=== PATIENT | male | born 1995 | race Caucasian/White ===

== ENCOUNTER 2021-09-14 07:50 | Emergency (ER) | payer BC ==
[~2021-09-14] VITALS: Ht 185.4 cm; Wt 89.0 kg
[2021-09-14] MEDS ORDERED: METHYLPREDNISOLONE SOD SUCC 125 MG/2 ML VIAL IV STA (08:06)
[2021-09-14] MEDS ORDERED: ALBUTEROL (0.083%) 2.5MG/3ML NEB HHN STA (08:06)
[2021-09-14] MEDS ORDERED: SODIUM CHLORIDE 0.9% 1,000 ML IV ONE ×2 (08:15→13:45)
[2021-09-14 08:40] LABS: BASOPHILS % 0.5 % (0.0-2.0); EOSINOPHILS % 10.6 % (0.0-5.0); HEMATOCRIT. 43.5 % (42.0-52.0); HEMOGLOBIN. 14.8 g/dL (14.0-18.0); MEAN CORPUSCULAR HEMOGLOBIN 29.4 pg (28.0-32.0); MEAN CORPUSCULAR VOLUME 86.5 fL (80.0-94.0); MEAN PLATELET VOLUME 8.6 fl (7.4-10.4); MONOCYTES % 8.9 % (2.0-8.0); PLATELET 256 x1000/uL (130-400); RED BLOOD CELL COUNT 5.03 mill/uL (4.7-6.1); RED CELL DISTRIBUTION WIDTH 13.7 % (11.6-14.6)
[2021-09-14 08:50] LABS: CHLORIDE 107 mEq/L (98-107)
[2021-09-14 09:00] LABS: ETHANOL BLOOD < 10 mg/dL
[2021-09-14] MEDS: METHYLPREDNISOLONE SOD SUCC 125 MG/2 ML VIAL IV NR ×2 (09:28→12:07)
[2021-09-14 11:46] LABS: BG CARBOXYHEMOGLOBIN 0.3 % (0.5-1.5); BG HCO3 ACT 24.8 mmol/L (22.0-26.0); BG METHEMOGLOBIN 0.1 % (0.0-1.5); BG OXYHEMOGLOBIN 97.6 % (94.0-97.0); BG PCO2 45.2 mmHg (35.0-45.0); BG PH 7.357 (7.350-7.450); BG PO2 110.9 mmHg (75.0-100.0); BG SAMPLE SITE RIGHT RADIAL; BG TOTAL HEMOGLOBIN 14.9 g/dL (12.0-18.0); BG VENT MODE NASAL CANNULA
[2021-09-14 12:19] LABS: *AMPHETAMINES SCREEN URINE NEGATIVE (NEGATIVE); *BARBITURATES SCREEN URINE NEGATIVE (NEGATIVE); *BENZODIAZEPINES SCREEN URINE NEGATIVE (NEGATIVE); *COCAINE SCREEN URINE NEGATIVE (NEGATIVE); CANNABINOID URINE SCREEN PRESUMTIVE POSITIVE (NEGATIVE); METHADONE URINE SCREEN NEGATIVE (NEGATIVE); OPIATES URINE SCREEN NEGATIVE (NEGATIVE); PHENCYCLIDINE URINE SCREEN PRESUMTIVE POSITIVE (NEGATIVE)
[2021-09-14] MEDS ORDERED: ALBU05 NEB (13:05)
[2021-09-14] MEDS ORDERED: NEBU-281 MC (13:05)
[2021-09-14] MEDS ORDERED: ALBU6.7H9 INH (13:05)
[2021-09-14] MEDS ORDERED: P50 MT (13:05)
[2021-09-14 15:05] LABS: BG BASE EXCESS -0.9 mmol/L (-2.0-2.0); BG CARBOXYHEMOGLOBIN 0.5 % (0.5-1.5); BG DEOXYHEMOGLOBIN 4.1 % (0.0-5.0); BG HCO3 ACT 23.3 mmol/L (22.0-26.0); BG METHEMOGLOBIN 0.2 % (0.0-1.5); BG OXYGEN SATURATION 95.9 % (92.0-98.5); BG OXYHEMOGLOBIN 95.2 % (94.0-97.0); BG PCO2 37.1 mmHg (35.0-45.0); BG PH 7.415 (7.350-7.450); BG PO2 76.8 mmHg (75.0-100.0); BG SAMPLE SITE RIGHT RADIAL; BG TOTAL HEMOGLOBIN 15.4 g/dL (12.0-18.0); BG VENT MODE ROOM AIR
[2021-09-14] MEDS ORDERED: LORAZEPAM 0.5MG TABLET PO ONE (15:15)
[2021-09-14 15:40] VITALS: BP 116/72
== END 2021-09-14 15:48 | disposition home or self-care (01) ==
LOC: ER 08:23
DX: J45.901 Unspecified asthma with (acute) exacerbation (principal); R06.03 Acute respiratory distress
CPT/HCPCS: 36415; 36600; 71045; 80053; 80305; 80320; 82375; 82805; 84484; 85025; 85379; 93005; 94640; 96360; 96361; 99285; J2930; J7030; Z7610; G0480